=== PATIENT | female | born 1950 | race Hispanic/Latino ===

== ENCOUNTER 2018-10-08 08:10 | Inpatient (IN) | payer MEDICARE | END 2018-10-12 13:15 | disposition home or self-care (01) | LOC: EDH 08:10 → EDHIP 11:00 → 4BH 18:51 | DX: K57.92 Diverticulitis of intestine, part unspecified, without perforation or abscess without bleeding (principal); J18.9 Pneumonia, unspecified organism; R11.2 Nausea with vomiting, unspecified; E86.9 Volume depletion, unspecified; I10 Essential (primary) hypertension; J45.909 Unspecified asthma, uncomplicated; I73.9 Peripheral vascular disease, unspecified ==

== ENCOUNTER 2020-09-04 15:24 | Inpatient (IN) | payer MEDICARE ==
[~2020-09-04] VITALS: Ht 157.5 cm; Wt 106.6 kg
[~2020-09-04 15:24] MED LIST: ATOR40TA69 PO; FERS325 PO; FLUT15.845 NS; GABA-533 PO; GUAI400T93 PO; HYDR-4068 PO; OMEP40CA13 PO; OXYB5TAB15 PO; PARO-37 PO
[2020-09-04 16:40] LABS: BASOPHILS % (AUTO) 0.4 % (0.0-5.0); EOSINOPHILS % (AUTO) 1.6 % (0.0-8.0); HEMATOCRIT 30.2 % (36-48); LYMPHOCYTES % (AUTO) 12.3 % (21.0-51.0); MEAN CORPUSCULAR HEMOGLOBIN 27.9 pg (27.0-33.0); MEAN CORPUSCULAR HGB CONC 31.5 g/dL (32.0-36.0); MEAN CORPUSCULAR VOLUME 88.6 fL (79-99); MONOCYTES % (AUTO) 10.5 % (3.0-13.0); NEUTROPHILS % (AUTO) 74.2 % (40.0-77.0); PLATELET COUNT (AUTO) 254 K/uL (130-400); RED BLOOD CELL COUNT(AUTO) 3.41 MIL/uL (4.00-5.50); RED CELL DISTRIBUTION WIDTH 14.7 % (11.0-15.5); WHITE BLOOD COUNT (AUTO) 13.7 K/uL (4.8-10.8)
[2020-09-04 16:59] LABS: CREATININE 2.9 mg/dL (0.5-1.5); POTASSIUM 3.7 mmol/L (3.5-5.1)
[2020-09-04 17:03] LABS: ALBUMIN 2.8 g/dL (3.5-5.0); BILIRUBIN,TOTAL 0.5 mg/dL (0.2-1.0)
[2020-09-04 17:04] LABS: INR 0.95 (0.85-1.15); PARTIAL THROMBOPLASTIN TIME 30.8 SEC (26.3-35.5); PROTHROMBIN TIME 10.3 SEC (9.6-11.6)
[2020-09-04] MEDS ORDERED: CLINDAMYCIN 600 MG/D5% WATER 50 ML IV ONE (17:09)
[2020-09-04] MEDS ORDERED: ZOSYN 3.375GM+NS 50ML 50 ML IV ONE (17:47)
[2020-09-04] MEDS ORDERED: ONDANSETRON HCL 4 MG/2 ML VIAL IVP PRN (18:15)
[2020-09-04] MEDS: INSULIN R PO SS1/2 SQ SCH (21:00)
[2020-09-05] MEDS ORDERED: CLINDAMYCIN 300 MG/D5W 50 ML 50 ML IV ONE (00:06)
--- NOTE | 2020-09-05 02:17 | NUR ---
ADMISSION NOTE: Admitted to floor via stretcher from ER. Fully awake and responsive. Denies pain or any discomfort. VS checked and recorded. Physical assessment done. ( See CPOE flow chart for full assessment). Has IV site to RAC #20g, SL - patent and intact. Photo of the wound to right foot taken and attached to chart. To consult Dr. Holloway in AM per ER staff report. Home meds listed. Oriented to room and used of call light. Policies and procedures explained. Agreed and verbalized understanding. Plan of care initiated. No apparent distress noted. Needs attended and cared for.
[2020-09-05 02:18] VITALS: BP 97/54
[2020-09-05] MEDS ORDERED: FURO20TA6 PO (03:11)
[2020-09-05] MEDS ORDERED: CHOL100040 PO (03:11)
[2020-09-05] MEDS ORDERED: BUDE10.2 IH (03:11)
[2020-09-05] MEDS ORDERED: ATOR-2 PO (03:11)
[2020-09-05] MEDS ORDERED: OMEP20CA12 PO (03:11)
[2020-09-05] MEDS ORDERED: LISI1TAB32 PO (03:11)
[2020-09-05] MEDS ORDERED: HYDR-4453 PO (03:11)
[2020-09-05] MEDS ORDERED: VITA1TAB39 PO (03:11)
[2020-09-05] MEDS ORDERED: ALBU8.5H8 IH (03:11)
[2020-09-05 05:09] LABS: HEMATOCRIT 28.6 % (36-48); MEAN CORPUSCULAR HEMOGLOBIN 27.9 pg (27.0-33.0); MEAN CORPUSCULAR HGB CONC 31.1 g/dL (32.0-36.0); MEAN CORPUSCULAR VOLUME 89.7 fL (79-99); RED BLOOD CELL COUNT(AUTO) 3.19 MIL/uL (4.00-5.50); RED CELL DISTRIBUTION WIDTH 14.8 % (11.0-15.5); WHITE BLOOD COUNT (AUTO) 9.9 K/uL (4.8-10.8)
[2020-09-05 05:21] LABS: ALBUMIN 2.3 g/dL (3.5-5.0); BILIRUBIN,TOTAL 0.4 mg/dL (0.2-1.0); CREATININE 2.7 mg/dL (0.5-1.5); MAGNESIUM 1.8 mg/dL (1.80-2.40); PHOSPHORUS 5.4 mg/dL (2.5-4.9); POTASSIUM 3.7 mmol/L (3.5-5.1); TOTAL PROTEIN, SERUM 6.3 g/dL (6.0-8.3); URIC ACID 7.5 mg/dL (2.6-7.2)
[2020-09-05 06:14] VITALS: BP 98/48
[2020-09-05] MEDS: INSULIN R PO SS1/2 SQ SCH ×4 (07:30→21:00)
[2020-09-05] MEDS: PANTOPRAZOLE SODIUM 40 MG TABLET.DR PO SCH (08:08)
[2020-09-05] MEDS: ACETAMINOPHEN 325 MG TAB PO PRN (08:09)
[2020-09-05] MEDS: ZOSYN 3.375GM+NS 50ML 50 ML IV SCH ×2 (08:10→21:37)
[2020-09-05] MEDS: Vitamin B Complex/Vit C/Folic Acid PO SCH (08:10)
[2020-09-05] MEDS: CLINDAMYCIN 300 MG/D5W 50 ML 50 ML IV SCH ×3 (08:14→21:44)
[2020-09-05 12:26] VITALS: BP 114/58
[2020-09-05 16:30] VITALS: BP 114/46
[2020-09-05] MEDS: HYDROMORPHONE HCL 0.5 MG/0.5 ML ML IVP PRN ×2 (16:44→22:44)
--- NOTE | 2020-09-05 17:23 | NUR ---
cm note met with patient and states resides at home with spouse, uses cane for ambulation, does own adls. no home services. pt drives. dc plan is back home at time of dc. Addendum: 09/05/20 at 1725 by MIGEL FISCHER CM Amended: Links added.
[2020-09-05 20:45] VITALS: BP 121/55
[2020-09-06 00:01] VITALS: BP 123/63
[2020-09-06] MEDS: CLINDAMYCIN 300 MG/D5W 50 ML 50 ML IV SCH ×2 (00:15→09:50)
[2020-09-06] MEDS: ACETAMINOPHEN 325 MG TAB PO PRN (00:21)
[2020-09-06 04:00] VITALS: BP 143/50
[2020-09-06 04:53] LABS: BASOPHILS % (AUTO) 0.8 % (0.0-5.0); EOSINOPHILS % (AUTO) 4.9 % (0.0-8.0); HEMATOCRIT 29.4 % (36-48); LYMPHOCYTES % (AUTO) 19.6 % (21.0-51.0); MEAN CORPUSCULAR HEMOGLOBIN 28.2 pg (27.0-33.0); MEAN CORPUSCULAR HGB CONC 32.7 g/dL (32.0-36.0); MEAN CORPUSCULAR VOLUME 86.2 fL (79-99); MONOCYTES % (AUTO) 9.8 % (3.0-13.0); NEUTROPHILS % (AUTO) 63.6 % (40.0-77.0); PLATELET COUNT (AUTO) 287 K/uL (130-400); RED BLOOD CELL COUNT(AUTO) 3.41 MIL/uL (4.00-5.50); RED CELL DISTRIBUTION WIDTH 14.7 % (11.0-15.5); WHITE BLOOD COUNT (AUTO) 7.9 K/uL (4.8-10.8)
[2020-09-06 05:11] LABS: CREATININE 1.4 mg/dL (0.5-1.5); POTASSIUM 3.6 mmol/L (3.5-5.1)
[2020-09-06 06:45] LABS: % IRON SATURATION 11.9 % (22-44)
[2020-09-06 06:47] LABS: HEMOGLOBIN A1C 6.7 % (4.0-6.0)
[2020-09-06] MEDS: INSULIN R PO SS1/2 SQ SCH ×4 (07:30→20:55)
[2020-09-06 08:00] VITALS: BP 151/79
[2020-09-06] MEDS: Vitamin B Complex/Vit C/Folic Acid PO SCH (09:49)
[2020-09-06] MEDS: PANTOPRAZOLE SODIUM 40 MG TABLET.DR PO SCH (09:50)
[2020-09-06] MEDS: ZOSYN 3.375GM+NS 50ML 50 ML IV SCH ×2 (09:50→21:34)
[2020-09-06] MEDS: HYDROMORPHONE HCL 0.5 MG/0.5 ML ML IVP PRN (11:02)
[2020-09-06 12:00] VITALS: BP 137/77
[2020-09-06] MEDS: ZYVOX 600 MG TAB PO SCH (12:48)
[2020-09-06] MEDS ORDERED: COMPOUND IV MISC 1 EACH IVSOLN MISC PRN (13:45)
[2020-09-06 16:00] VITALS: BP 159/76
[2020-09-06 20:40] VITALS: BP 136/53
[2020-09-07 00:01] VITALS: BP 170/51
[2020-09-07] MEDS: ZYVOX 600 MG TAB PO SCH ×2 (01:32→12:53)
[2020-09-07 04:04] VITALS: BP 160/62
[2020-09-07 04:34] LABS: HEMATOCRIT 31.9 % (36-48); MEAN CORPUSCULAR HEMOGLOBIN 27.8 pg (27.0-33.0); MEAN CORPUSCULAR HGB CONC 32.6 g/dL (32.0-36.0); MEAN CORPUSCULAR VOLUME 85.3 fL (79-99); PLATELET COUNT (AUTO) 315 K/uL (130-400); RED BLOOD CELL COUNT(AUTO) 3.74 MIL/uL (4.00-5.50); RED CELL DISTRIBUTION WIDTH 14.6 % (11.0-15.5); WHITE BLOOD COUNT (AUTO) 6.6 K/uL (4.8-10.8)
[2020-09-07 04:50] LABS: POTASSIUM 3.3 mmol/L (3.5-5.1)
[2020-09-07] MEDS: ZOSYN 3.375GM+NS 50ML 50 ML IV SCH (05:49)
[2020-09-07] MEDS: INSULIN R PO SS1/2 SQ SCH ×2 (05:49→11:30)
[2020-09-07 06:17] LABS: EOSINOPHILS % (MANUAL) 3 % (1-6); LYMPHOCYTES % (MANUAL) 22 % (22-44); MONOCYTES % (MANUAL) 8 % (2-9); SEGMENTED NEUTROPHILS % 67 % (40-70)
[2020-09-07 06:18] LABS: MAN.DIFF COMMENT-IMPRESSION MANUAL DIFFERENTIAL; PLATELET MORPHOLOGY COMMENT ADEQUATE
[2020-09-07] MEDS ORDERED: IRON SUCROSE COMPLEX 300 MG in SODIUM CHLORIDE 0.9% 50 ML IV SCH (09:00)
[2020-09-07] MEDS: Vitamin B Complex/Vit C/Folic Acid PO SCH (10:01)
[2020-09-07] MEDS: PANTOPRAZOLE SODIUM 40 MG TABLET.DR PO SCH (10:01)
[2020-09-07] MEDS ORDERED: HYDROMORPHONE 1 MG/1 ML AMP ONE (10:12)
[2020-09-07 10:21] VITALS: BP 159/67
[2020-09-07] MEDS ORDERED: CEFU500T67 PO (11:43)
[2020-09-07] MEDS ORDERED: DOXY100C2 PO (11:43)
[2020-09-07 13:22] VITALS: BP 155/61
--- NOTE | 2020-09-07 13:35 | NUR ---
pt asking for home health for dressing changes to right foot ulcer; i have called emmanuel navarrete and asked her about this. she stated i would need to check with dr navarro or dr reyes to see if necessary
--- NOTE | 2020-09-07 13:46 | NUR ---
i have called and left a message on dr perez phone in regards to d/c today and dressing changes and if home health needed; pending call back
--- NOTE | 2020-09-07 15:05 | NUR ---
i received a call back from dr navarro and he recommends that pt have home health for daily drsg changes; i called dr reyes for order and he stated to have pt f/u tomorrow at his office or at dr berry's to have it set up there. i called rosalba benitez and informed her of this
--- NOTE | 2020-09-07 15:11 | NUR ---
i called dr berry'los [place] and made arrangements for pt to be set up with home health through that office tomorrow.
[2020-09-07] MEDS ORDERED: CEFUROXIME AXETIL 250 MG TABLET PO SCH (15:45)
--- NOTE | 2020-09-07 16:44 | NUR ---
PT STATED UNDERSTANDING OF ALL D/C INSTRUCTIONS INCLUDING ANTIBIOTIC PERSCRIPTIONS THAT HAVE BEEN CALLED TO [facility], FOLLOW UP APPOINTMENTS--TO SEE DR NORMAN TOMORROW AM TO HAVE HOME HEALTH SET UP AND REFERRAL FOR DR SENA; WOUND CARE PER HOME HEALTH, SIGNS AND SYMPTOMS OF INFECTION TO WATCH FOR AND REPORT TO MD AND TO GO TO ED OR CALL 911 IF LIFE THREATENING PROBLEMS OCCUR. IV AND TELE BOX REMOVED.
--- NOTE | 2020-09-07 17:45 | NUR ---
CM NOTE/DC HOME AND F/U WITH HH REFERRAL CALL RECEIVED FROM BRANDAN YI, PRIMARY NURSE. STATES PATIENT WANTING HOME HEALTH FOR WOUND CARE AND THAT DR. RAMESH WAS INFORMED, STATES DR. RAMESH WISHES FOR PATIENT TO DC HOME AND TO FOLLOW UP WITH HIM IN HIS OFFICE FOR REFERRAL TO HOME HEALTH. PATIENT ANTICIPATES DISCHARGE HOME.
--- NOTE | 2020-09-08 14:25 | NUR ---
Transitional Care - Post Discharge Note NO ANSWER. Patient was called at both numbers listed on file. Message was left requesting callback. Addendum: 09/08/20 at 1426 by LAURA CHOPRA Amended: Links added. Addendum: 09/08/20 at 1602 by LAURA CHOPRA Patient called back. States she was at her PCP getting a dressing change. She is taking discharge medications as ordered. No complaints of pain, fevers, N/V/D reported. Patient will continue to visit PCP for dressing changes.
== END 2020-09-07 17:00 | disposition home health service (06) | DRG 623 ==
LOC: EDH 15:24 → EDHIP 17:33 → 3DH 09-05 01:47
PROVIDERS: ADMIT Internal Medicine Nephrology; ATTEND Internal Medicine Nephrology
PROC: 0JBQ0ZZ Excision of Right Foot Subcutaneous Tissue and Fascia, Open Approach (ICD-10-PCS; principal; 2020-09-05)
PROC: 0SBP0ZZ Excision of Right Toe Phalangeal Joint, Open Approach (ICD-10-PCS; 2020-09-06)
DX: E11.621 Type 2 diabetes mellitus with foot ulcer (principal); L02.611 Cutaneous abscess of right foot; Z68.41 Body mass index [BMI] 40.0-44.9, adult; N17.9 Acute kidney failure, unspecified; D64.9 Anemia, unspecified; E11.42 Type 2 diabetes mellitus with diabetic polyneuropathy; E11.51 Type 2 diabetes mellitus with diabetic peripheral angiopathy without gangrene; E66.01 Morbid (severe) obesity due to excess calories; E78.5 Hyperlipidemia, unspecified; L03.031 Cellulitis of right toe; L97.519 Non-pressure chronic ulcer of other part of right foot with unspecified severity; N18.9 Chronic kidney disease, unspecified; R32 Unspecified urinary incontinence; G89.29 Other chronic pain; M54.9 Dorsalgia, unspecified; Z20.828 Contact with and (suspected) exposure to other viral communicable diseases; I12.9 Hypertensive chronic kidney disease with stage 1 through stage 4 chronic kidney disease, or unspecified chronic kidney disease; Z96.652 Presence of left artificial knee joint; Z83.3 Family history of diabetes mellitus; Z98.84 Bariatric surgery status; Z90.710 Acquired absence of both cervix and uterus; Z98.1 Arthrodesis status
CPT/HCPCS: 36415; 71045; 73630; 73718; 80048; 80053; 82728; 82948; 83036; 83540; 83550; 83735; 84100; 84484; 84550; 85025; 85027; 85610; 85730; 87040; 87070; 87076; 87426; 93005; 93925; G0378; J1170; J1756; J2543; J3490; U0003

== ENCOUNTER → 2024-06-27 | Outpatient (CLI) | payer OTHER ==
[~2024-06-27] MED LIST changes: +ALBU8.5H8 IH; +ATOR-2 PO; -ATOR40TA69 PO; +BUDE10.2 IH; +CEFU500T67 PO; +CHOL100040 PO; +DOXY100C5 PO; -FLUT15.845 NS; +FURO20TA6 PO; -GABA-533 PO; +GABA-534 PO; -GUAI400T93 PO; -HYDR-4068 PO; +HYDR-4453 PO; +OMEP20CA12 PO; -OMEP40CA13 PO; -OXYB5TAB15 PO; +VITA1TAB39 PO
== END | disposition home or self-care (01) ==
LOC: RAH 11:00
PROVIDERS: ATTEND Family Medicine
DX: M19.012 Primary osteoarthritis, left shoulder (principal); M81.0 Age-related osteoporosis without current pathological fracture; M25.712 Osteophyte, left shoulder; M25.512 Pain in left shoulder
CPT/HCPCS: 73030